=== PATIENT | female | born 2000 | race Caucasian/White ===

== ENCOUNTER 2021-10-19 17:34 | Emergency (ER) | payer BC ==
[~2021-10-19] VITALS: Ht 162.6 cm; Wt 74.8 kg
[2021-10-19 17:50] VITALS: BP 123/68
[2021-10-19] MEDS ORDERED: predniSONE 20 MG TAB PO STA (18:08)
[2021-10-19] MEDS ORDERED: PRD20T PO (18:12)
--- NOTE | 2021-10-19 18:12 | ED Integumentary General ---
General Chief Complaint: Skin/Wound Problems Stated Complaint: RASH R ELBOW Nursing Triage Note: PT AMB TO FT 1 W AREA OF CONCERN ON RIGHT ARM SX YESTERDAY MORNING. AREA IS RED AND WARM UPON INSPECTION. PT USED A MARKER TO DRAW A TUSCARORA AT THE BORDER LAST NIGHT, REDNESS IS SLIGHTLY BEYOND TUSCARORA AT THIS TIME. PT C/O ITCHING AND PAIN AT SITE, REPORTS SHE HAS BEEN USING CORTIZONE CREAM AND TAKING BENADRYL TO TX AT HOME W NO IMPROVEMENT. A&OX4. History of Present Illness Date Seen by Provider: Oct 19, 2021 Time Seen by Provider: 17:50 Initial Comments 21-year-old female presents for a rash to the medial > lateral aspect of her right elbow. She states that her symptoms began yesterday morning. She does not remember an insect bite or using any new products on her skin, close or food intake. No injuries to the right elbow. She has no known skin allergies. She has been putting hydrocortisone cream on it and taking Benadryl with no significant improvement. She denies any pain her main complaint is pruritus. Timing/Duration: yesterday Location: extremities (right elboe) Possible Cause: no cause identified Associated Symptoms: change in skin texture; No edema, No hives; rash Allergies and Home Medications Allergies Coded Allergies: No Known Drug Allergies (Unverified , 10/19/21) Patient Home Medication List Home Medication List Reviewed: Yes Prednisone (Prednisone) 20 Mg Tab, 40 MG PO DAILY Prescribed by: NATALYA LONGORIA on 10/19/211811 Review of Systems Review of Systems Constitutional: no symptoms reported, see HPI Skin: see HPI, change in color, rash All Other Systems Reviewed Negative Unless Noted: Yes Past Cwrueic-Orxnic-Zdznzy Hx Patient Social History Tobacco Use?: No Use of E-Cig and/or Vaping dev: No Substance use?: No Alcohol Use?: No Immunizations Up To Date Influenza Vaccine Up-to-Date: No; Not Current First/Initial COVID19 Vaccinat: 2020 Second COVID19 Vaccination Dawit: 2020 COVID19 Vaccine In Service Educator: ROBERTO Family Medical History Reviewed Nursing Family Hx Physical Exam Vital Signs Vital Signs - First Documented 10/19/21 17:50 Temp 37.3 Pulse 80 Resp 20 B/P (MAP) 123/68 (86) Pulse Ox 99 O2 Delivery Room Air Capillary Refill : Less Than 3 Seconds General Appearance: WD/WN, no apparent distress Cardiovascular: normal peripheral pulses, regular rate, rhythm Respiratory: chest non-tender, lungs clear, normal breath sounds Skin: normal color, warm/dry Skin Problem Location: upper extremities (rigth elbow medial > lateral aspect, patient used marker to outline border) Skin Problem Character: patchy, rash, urticarial Progress/Results/Core Measures Results/Orders My Orders Orders - NATALYA LONGORIA Prednisone Tablet (Deltasone Tablet) (10/19/21 18:08) Vital Signs/I&O 10/19/21 17:50 Temp 37.3 Pulse 80 Resp 20 B/P (MAP) 123/68 (86) Pulse Ox 99 O2 Delivery Room Air Blood Pressure Mean: 86 Departure Impression Primary Impression: Contact dermatitis Qualified Codes: L23.9 - Allergic contact dermatitis, unspecified cause Disposition: HOME, SELF-CARE Condition: Improved Departure-Patient Inst. Decision time for Depature: 18:05 Referrals: NO,LOCAL PHYSICIAN (PCP) Primary Care Physician CHAPIS CASTANO (Family) Primary Care Physician Patient Instructions: Contact Dermatitis (DC) Add. Discharge Instructions: Continue to monitor the rash to your right elbow. Apply Hydrocortisone to rash every 6-8 hours. Take Zyrtec 1 tablet daily. Take Benadryl 25 mg every 8 hours if tolerating and not making drowsy, otherwise you can take 50 mg at bedtime. Take prednisone as prescribed. Follow-up with your primary care provider if symptoms are not improving or worsen. Return to the emergency department for new, urgent healthcare needs. All discharge instructions reviewed with patient and/or family. Voiced understanding. Scripts Prednisone (Prednisone) 20 Mg Tab 40 MG PO DAILY, #6 TAB 0 Refills Prov: VONNATALYA SOLITARIO 10/19/21 VONNATALYA Oct 19, 2021 18:12
== END 2021-10-19 18:23 | disposition home or self-care (01) ==
LOC: ER 17:37
DX: L25.9 Unspecified contact dermatitis, unspecified cause (principal)
CPT/HCPCS: 99283